=== PATIENT | male | born 1955 | race Caucasian/White ===

== ENCOUNTER → 2020-05-28 00:15 | Outpatient (CLI) | payer OTHER, SELFPAY ==
[2020-05-28 20:39] LABS: SARS-CoV-2 RNA PCR Negative
== END ==
PROVIDERS: PCP Internal Medicine; Visit Provider Internal Medicine Gastroenterology
DX: Z01.812 Encounter for preprocedural laboratory examination (principal); Z20.822 Contact with and (suspected) exposure to COVID-19
CPT/HCPCS: C9803; U0003; U0005

== ENCOUNTER 2020-06-01 01:07 | Day surgery (SDC) | payer OTHER, SELFPAY ==
[2020-05-12 13:42] VITALS: BMI 32.0
[2020-06-01 07:29] VITALS: BP 123/95; PULSE 105; RESP 18; TEMP 36.3; O2SAT 97; BMI 31.6
[2020-06-01] MEDS: LACTATED RINGERS 1,000 ML 150 ML IV CONT (07:41)
--- NOTE | 2020-06-01 08:08 | WPDANESEPPF ---
Anes - Initial Pre Proc Eval Procedure: Operation Date: 06/01/20 08:30 Proposed Procedures p Screening Colonoscopy - Carlos Montoya MD Date/Time: 06/01/20 08:08 Surgeon: Carlos Montoya MD Pre Op Diagnosis: Neoplasm Screening Patient Data Age: 65 Gender: M Height: 6 ft 1 in Weight: 108.7 kg Last Vital Signs Temp 36.3 C L 06/01/20 07:29 Pulse 105 H 06/01/20 07:29 Resp 18 06/01/20 07:29 BP 123/95 H 06/01/20 07:29 Pulse Ox 97 06/01/20 07:29 Allergies Allergy/AdvReac Type Severity Reaction Status Date / Time No Known Allergies Allergy Verified 06/01/20 07:25 Home Medications Medication Instructions Recorded Confirmed Type ibuprofen 200 mg tablet 200 mg PO Q6H PRN 05/03/20 05/12/20 History loratadine 10 mg tablet 10 mg PO DAILY 05/03/20 05/12/20 History sodium,potassium,mag sulfates See Rx Instructions .ROUTE 05/06/20 Rx [Suprep Bowel Prep Kit] .COMPLEX #1 ml Patient hx anesthesia problems: none Family hx anesthesia problems: none PMFSH Surgical History Surgical History (Updated 06/01/20 @ 08:11 by Deonte Hills MD) H/O adenoidectomy H/O colonoscopy H/O lithotripsy History of tympanoplasty Family History Family History Mother Breast cancer Dementia Father Lung cancer Social History Social History Smoking packs per day: 1.5 Smoking cigarettes per day: 30.0 Years smoked: 7 Smoking pack-years: 10.50 Smoking status: Former smoker Tobacco type: cigarettes Alcohol intake: never Drinks per week: 4 Substance use type: does not use Living arrangements: with family Spiritual care concerns: No Anes - Eval Final PreProcedure Day of Procedure 06/01/20 08:08 Patient weight: obese Heart: regular rate and rhythm Lungs: clear to auscultation Airway: Mallampati scale class II Neurological: alert and oriented Last oral intake: >/= 8 hours ASA classification: II Emergent: no Anesthetic plan: proceed Anesthesia type and monitoring: general GIVS and standard monitoring Informed Consent: The patient's anesthetic plan and its attendant risks and benefits were discussed with the patient/family/POA. Questions were solicited and answers provided to the satisfaction of the patient/family/POA.
--- NOTE | 2020-06-01 09:02 | PM.HPGS ---
History of Present Illness History of Present Illness Consent: Risks, benefits, and alternatives have been discussed and questions answered. Patient agrees to proceed with procedure. Chief complaint: Neoplasm Screening Narrative: Oswaldo Laughlin is a 65 year old male here for screening colonoscopy, last one 10 years ago. Review of Systems Constitutional: Constitutional: Denies headache(s) and Denies weakness Eyes: Eyes: Denies blurry vision ENT: Reports Normal hearing present, Denies headache(s) and Denies neck pain Cardiovascular: Cardiovascular: Denies chest pain and Denies dyspnea Respiratory: Respiratory: Denies dyspnea Gastrointestinal: Gastrointestinal: Reports no additional gastrointestinal complaints Genitourinary: Genitourinary: Denies dysuria Musculoskeletal: Musculoskeletal: Denies neck pain Integumentary/Breasts: Skin/Breast: Denies dry skin Neurologic: Reports Normal hearing present, Denies headache(s) and Denies weakness Psychiatric: Psychiatric: Denies anxiety Endocrine: Endocrine: Denies change in body appearance Hematologic/Lymphatic: Hematologic/Lymphatic: Denies easy bleeding Allergic/Immunologic: Allergic/Immunologic: Denies urticaria PMFSH Surgical History Surgical History (Updated 06/01/20 @ 08:11 by Deonte Hills MD) H/O adenoidectomy H/O colonoscopy H/O lithotripsy History of tympanoplasty Family History Family History Mother Breast cancer Dementia Father Lung cancer Social History Social History Smoking packs per day: 1.5 Smoking cigarettes per day: 30.0 Years smoked: 7 Smoking pack-years: 10.50 Smoking status: Former smoker Tobacco type: cigarettes Alcohol intake: never Drinks per week: 4 Substance use type: does not use Living arrangements: with family Spiritual care concerns: No Meds Home Medications and Allergies Home Medications Medication Instructions Recorded Confirmed Type ibuprofen 200 mg tablet 200 mg PO Q6H PRN 05/03/20 05/12/20 History loratadine 10 mg tablet 10 mg PO DAILY 05/03/20 05/12/20 History sodium,potassium,mag sulfates See Rx Instructions .ROUTE 05/06/20 Rx [Suprep Bowel Prep Kit] .COMPLEX #1 ml Allergies Allergy/AdvReac Type Severity Reaction Status Date / Time No Known Allergies Allergy Verified 06/01/20 07:25 Vital Signs Vital Signs - 24 hr 06/01/20 07:29 Temperature 97.3 F L Pulse Rate 105 H Respiratory Rate 18 Blood Pressure 123/95 H Pulse Oximetry 97 Exam Const: General: comfortable and no acute distress HENMT: General nose exam: Normal nares present Eyes: General: appearance normal, both eyes and all related structures Neck: Neck: no JVD Resp: Auscultation: clear to auscultation bilaterally Cardio: Rate: regular rate Rhythm: regular rhythm GI: Inspection: non-distended GI Palp: Yes Soft to palpation Skin: General skin exam: normal color Neuro: General: gait normal Speech: normal speech Extrem: General: normal to inspection Psych: Mental Status: mental status grossly normal Assessment and Plan Assessment and plan (1) Encounter for screening colonoscopy: Code(s): Z12.11 - Encounter for screening for malignant neoplasm of colon Status: Acute Assessment and Plan: proceed with colonoscopy
[2020-06-01 09:31] VITALS: BP 123/83; PULSE 63; RESP 27; O2SAT 97
[2020-06-01 09:41] VITALS: BP 107/78; PULSE 67; RESP 18; O2SAT 99
[2020-06-01 09:51] VITALS: BP 123/91; PULSE 62; RESP 19; O2SAT 97
== END 2020-06-01 09:57 | disposition home or self-care (01) ==
PROVIDERS: PCP Internal Medicine; Visit Provider Internal Medicine Gastroenterology
PROC: 0DJD8ZZ Inspection of Lower Intestinal Tract, Via Natural or Artificial Opening Endoscopic (ICD-10-PCS; CPT 45378; principal; 2020-06-01 08:30)
DX: Z12.11 Encounter for screening for malignant neoplasm of colon (principal); K57.30 Diverticulosis of large intestine without perforation or abscess without bleeding; K64.8 Other hemorrhoids; Z87.891 Personal history of nicotine dependence; E66.9 Obesity, unspecified; Z68.31 Body mass index [BMI] 31.0-31.9, adult
CPT/HCPCS: 45378; J2704; J7120

== ENCOUNTER 2021-07-04 08:53 | Outpatient (CLI) | payer MEDICARE, SELFPAY ==
--- NOTE | ~2021-07-04 | US_ITS ---
EXAMINATION: US aorta [facility] DATE: 07/04/2021 11:29 CDT INDICATION: Nicotine dependence TECHNIQUE: Grayscale, color Doppler, and pulsed Doppler images of the aorta and common iliac arteries were obtained. COMPARISON: None. FINDINGS: There is atherosclerosis of the aorta. The proximal aorta measures 3 cm greatest sagittal dimension. The mid aorta measures 2.5 cm greatest sagittal dimension. The distal aorta measures 2.3 cm greatest sagittal dimension. The right common internal iliac artery measures 1.4 cm. The left common iliac art val measures 1.4 cm. IMPRESSION: 1. Atherosclerosis of the aorta with mild fusiform proximal abdominal aortic aneurysm measuring 3 cm. Reviewed, dictated and finalized at location B. IMPRESSION: 1. Atherosclerosis of the aorta with mild fusiform proximal abdominal aortic an eurysm measuring 3 cm.
== END 2021-07-04 08:54 | disposition home or self-care (01) ==
LOC: ANHIMG 08:54
PROVIDERS: PCP Internal Medicine; Visit Provider Internal Medicine
DX: I70.0 Atherosclerosis of aorta (principal); I71.4 Abdominal aortic aneurysm, without rupture; Z87.891 Personal history of nicotine dependence
CPT/HCPCS: 76706